=== PATIENT | female | born 1945 | race Hispanic/Latino ===

== ENCOUNTER → 2022-08-29 | Outpatient (CLI) | payer MEDICARE ==
[~2022-08-29] MED LIST: FAMOTIDINE20 MG; GABAPENTIN300 MG; LEVEMIR100 UNIT/1; LEVOTHYROXINE25 MCG; LISINOPRIL2.5 MG; LOVASTATIN40 MG; METFORMIN HCL1000 MG; PAROXETINE HCL20 MG
== END ==
LOC: MAMMO 13:16
PROVIDERS: ATTEND Internal Medicine
DX: Z12.31 Encounter for screening mammogram for malignant neoplasm of breast (principal); Z13.820 Encounter for screening for osteoporosis
CPT/HCPCS: 77067; 77080